=== PATIENT | male | born 1965 | race Two or more races ===

== ENCOUNTER 2016-03-02 08:50 | Observation (INO) | payer OTHER ==
[2016-03-02] MEDS ORDERED: LIDOCAINE 2% URO-JET 5 ML KIT MM ONE (09:12)
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
[2016-03-02 09:47] LABS: APPEARANCE,URINE CLOUDY; BILIRUBIN,URINE NEGATIVE (NEGATIVE); GLUCOSE, URINE >=500 mg/dL (NEGATIVE); KETONES,URINE NEGATIVE (NEGATIVE); LEUKOCYTE ESTERASE,URINE LARGE (NEGATIVE); NITRITE,URINE NEGATIVE (NEGATIVE); PROTEIN,URINE 100 mg/dL (NEGATIVE); URINE SPECIFIC GRAVITY 1.027; UROBILINOGEN,URINE NEGATIVE mg/dL (<2.0)
[2016-03-02] MEDS ORDERED: NORMAL SALINE 1000 ML 1,000 ML IV ONE ×3 (09:49→13:28)
[2016-03-02] MEDS ORDERED: KETOROLAC TROMETHAMINE INJ/PF 30 MG/1 ML SDV IV ONE (09:49)
[2016-03-02] MEDS ORDERED: LORAZEPAM INJ 2 MG/1 ML VIAL IV ONE (09:49)
[2016-03-02] MEDS ORDERED: CEFTRIAXONE 1 GM/D5W RTU 50 ML IV ONE (10:55)
[2016-03-02 11:14] LABS: ABSOLUTE MONOCYTES (AUTO) 0.9 10^3/uL (0.1-1.4); ABSOLUTE NEUT (AUTO) 12.3 10^3/uL (1.7-8.2); BASOPHILS % (AUTO) 0.2 % (0-2); EOSINOPHILS % (AUTO) 0.1 % (0-6); HEMOGLOBIN 14.3 g/dL (13.5-17.0); HGB HCT DIFFERENCE -0.1; LYMPHOCYTES % (AUTO) 13.2 % (13-45); MEAN CORPUSCULAR HGB CONC 33.2 g/dL (32.0-36.0); MEAN CORPUSCULAR VOLUME 93 fl (80-97); RED CELL DISTRIBUTION WIDTH 12.8 % (11.5-14.0); SEGMENTED NEUTROPHILS % (AUTO) 80.5 % (42-78); WHITE BLOOD COUNT 15.2 10^3/uL (4.0-10.5)
[2016-03-02 11:28] LABS: ALANINE AMINOTRANSFERASE 28 U/L (21-72); ALBUMIN 3.8 g/dL (3.5-5.0); ALKALINE PHOSPHATASE 69 U/L (38-126); ANION GAP 10 (5-19); ASPARTATE AMINO TRANSFERASE 15 U/L (17-59); BILIRUBIN,TOTAL 1.5 mg/dL (0.2-1.3); BLOOD UREA NITROGEN 13 mg/dL (7-20); CALCIUM 9.2 mg/dL (8.4-10.2); CARBON DIOXIDE 25 mmol/L (22-30); CHLORIDE 101 mmol/L (98-107); GLUCOSE 246 mg/dL (75-110); POTASSIUM 4.1 mmol/L (3.6-5.0); SODIUM 135.7 mmol/L (137-145); TOTAL PROTEIN 6.6 g/dL (6.3-8.2)
[2016-03-02] MEDS ORDERED: PHENAZOPYRIDINE HCL 200 MG TABLET PO ONE (13:27)
[2016-03-02] MEDS ORDERED: CIPROFLOXACIN HCL 500 MG TABLET PO ONE (13:27)
[2016-03-02] MEDS ORDERED: ACETAMINOPHEN 325 MG TABLET PO PRN (15:21)
[2016-03-02] MEDS ORDERED: GLUCAGON,HUMAN RECOMB 1 MG INJ IM PRN (15:21)
[2016-03-02] MEDS ORDERED: DEXTROSE 40% GEL 15 GM TUBE PO PRN ×2 (15:21)
[2016-03-02] MEDS ORDERED: DEXTROSE 50%-WATER 25 GM/50 ML DISP.SYRIN IV PRN ×2 (15:21)
[2016-03-02] MEDS ORDERED: ONDANSETRON HCL INJ/PF 4 MG/2 ML SDV IV PRN (15:21)
[2016-03-02] MEDS ORDERED: MAGNESIUM HYDROXIDE SUSP 30 ML UDCUP PO PRN (15:21)
[2016-03-02] MEDS ORDERED: NORMAL SALINE 1000 ML 1,000 ML IV PRN (15:21)
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
[2016-03-02] MEDS: INSULIN LISPRO 100 UNIT/ML 3 ML VIAL SUBCUT PRN ×2 (17:10→23:03)
[2016-03-02] MEDS: DOCUSATE SODIUM 100 MG CAPSULE PO SCH (22:53)
[2016-03-02] MEDS: INSULIN GLARGINE,HUM.REC.ANLOG 300 UNIT/3 ML INSULN.PEN SUBCUT SCH (23:02)
[2016-03-03] MEDS ORDERED: INFLUENZA ADLT QUAD (36MOS+) 2016-17 VAC 0.5 ML SYR IM PRN (03:39)
[2016-03-03 05:58] LABS: ABSOLUTE LYMPHOCYTES (AUTO) 2.9 10^3/uL (0.5-4.7); ABSOLUTE NEUT (AUTO) 9.8 10^3/uL (1.7-8.2); BASOPHILS % (AUTO) 0.3 % (0-2); EOSINOPHILS % (AUTO) 0.3 % (0-6); HEMATOCRIT 40.1 % (37.9-51.0); HEMOGLOBIN 13.3 g/dL (13.5-17.0); HGB HCT DIFFERENCE -0.2; LYMPHOCYTES % (AUTO) 20.8 % (13-45); MEAN CORPUSCULAR HEMOGLOBIN 31.1 pg (27.0-33.4); MEAN CORPUSCULAR HGB CONC 33.1 g/dL (32.0-36.0); MEAN CORPUSCULAR VOLUME 94 fl (80-97); MONOCYTES % (AUTO) 7.1 % (3-13); RED BLOOD COUNT 4.27 10^6/uL (4.35-5.55); SEGMENTED NEUTROPHILS % (AUTO) 71.5 % (42-78); WHITE BLOOD COUNT 13.8 10^3/uL (4.0-10.5)
[2016-03-03] MEDS: LANSOPRAZOLE 30 MG TAB.RAP.DR PO SCH (05:59)
[2016-03-03 06:13] LABS: ANION GAP 9 (5-19); BLOOD UREA NITROGEN 12 mg/dL (7-20); CALCIUM 8.4 mg/dL (8.4-10.2); CARBON DIOXIDE 25 mmol/L (22-30); CHLORIDE 103 mmol/L (98-107); CREATININE RESULT 0.68 mg/dL (0.52-1.25); Direct HDL 36 mg/dL (>40); GLUCOSE 193 mg/dL (75-110); POTASSIUM 3.9 mmol/L (3.6-5.0); SODIUM 136.8 mmol/L (137-145); TRIGLYCERIDES 145 mg/dL (<150)
[2016-03-03 06:24] LABS: DIRECT LDL 81 mg/dL (<100)
--- NOTE | 2016-03-03 07:23 | Physician Advisory Note ---
Physician Advisor ProgressNote .: Pursuant to the plan for [facility], I have reviewed the medical record for this patient. Physician Advisor Statement: Documentation opportunities, if attending agrees: 1. "mild hyponatremia, likely due to intravascular volume depletion" [ unless you think it's all due to hyperglycemia] 2. "possible early sepsis, present on admission, due to ___ [UTI, or ...], ruled out/in" - If you believe pt didn't really clinically have sepsis, though technically met Sepsis-2 criteria of tachycardia/leukocytosis, then please document this dx was ruled out. - If you believe pt did come in w/ sepsis, please document "sepsis, present on admission, due to ___". 3. (late entry): Principal Dx: please list as dx #1 the principal dx, i.e. the dx that was primarily responsible for the pt needing to be in the hospital. Status: Pt brought in as Outpt Obs, for IVF & IV abx. After 1MN of aggressive hospital care, pt still has tachycardia of 93. Leukocytosis, although improved, continues unresolved at 13.8. If attending, on review of pt, considers pt not sufficiently improved for safe d/c home today, he may document reasons & consider change to Inpatient status. Supporting info for sepsis dx = subjective fevers & rigors at home, HR 111 on arrival (w/BP 114/78), WBC 15.2 initially. CK
[2016-03-03] MEDS: ENOXAPARIN SODIUM INJ 40 MG/0.4 ML DISP.SYRIN SUBCUT SCH (09:14)
[2016-03-03] MEDS: CEFTRIAXONE 1 GM/D5W RTU 50 ML IV SCH (09:15)
[2016-03-03] MEDS: DOCUSATE SODIUM 100 MG CAPSULE PO SCH ×2 (09:15→17:38)
[2016-03-03] MEDS ORDERED: NORMAL SALINE 1000 ML 1,000 ML IV PRN (10:49)
[2016-03-03] MEDS: INSULIN LISPRO 100 UNIT/ML 3 ML VIAL SUBCUT PRN ×2 (12:15→21:37)
--- NOTE | 2016-03-03 12:41 | PDOC PROGRESS REPORT ---
Subjective Progress Note for:: 03/03/16 Subjective:: LIANA PANDEY is a 51 year old male presents to the emergency department from home with complaints of 2 day history of difficulty urinating. In spite of consuming large volumes of water during the day he has noticed a decrease in the amount of urine made over the last couple of days with increased burning and dysuric symptoms. He describes his urine stream is merely dribbles of dark concentrated urine that cloudy and a bit foul-smelling as well. He reports subjective fevers and rigors at home. He is a known diabetic but does not have insurance and therefore has not received his Lantus and sliding scale insulin for over 6 months now. He still has a glucometer at home and checks his blood sugars at least twice week and states they run around 250 however his hemoglobin A1c in the emergency department is greater than 13. Diabetes runs strongly in his family, his father suffered multiple claudications from diabetes including bilateral amputations and end-stage renal disease requiring hemodialysis and ultimately transfusion before losing his life, patient was diabetes. Evaluation in the emergency department shows a urinary tract infection, poorly controlled blood sugars, clinical evidence of volume depletion without end organ damage and we were asked to admit him under observation to "tune him up and getting some help". Allergies making urine again he has noted some tinge of blood, notes the lower abdominal pain and bladder spasm pain seems to have improved. Physical Exam Vital Signs: Temp Pulse Resp BP Pulse Ox 97.9 F 85 18 111/67 95 03/03/16 08:02 03/03/16 08:02 03/03/16 08:02 03/03/16 08:02 03/03/16 08:02 Intake & Output 03/02/16 03/03/16 03/04/16 06:59 06:59 06:59 Intake Total 460 Output Total 2400 Balance -1940 Weight 109.2 kg General appearance: PRESENT: no acute distress, well-developed, well-nourished Head exam: PRESENT: atraumatic, normocephalic Eye exam: PRESENT: conjunctiva pink, EOMI, PERRLA. ABSENT: scleral icterus Mouth exam: PRESENT: moist, tongue midline Neck exam: ABSENT: carotid bruit, JVD, lymphadenopathy, thyromegaly Respiratory exam: PRESENT: clear to auscultation abi. ABSENT: rales, rhonchi, wheezes Cardiovascular exam: PRESENT: RRR. ABSENT: diastolic murmur, rubs, systolic murmur Pulses: PRESENT: normal dorsalis pedis pul Vascular exam: PRESENT: normal capillary refill GI/Abdominal exam: PRESENT: normal bowel sounds, soft. ABSENT: distended, guarding, rebound, tenderness Rectal exam: PRESENT: deferred Gentrourinary exam: PRESENT: indwelling catheter - Dark samm colored urine in the bag Extremities exam: PRESENT: full ROM. ABSENT: calf tenderness, clubbing, pedal edema Neurological exam: PRESENT: alert, awake, oriented to person, oriented to place , oriented to time, oriented to situation Psychiatric exam: PRESENT: appropriate affect, normal mood Skin exam: PRESENT: dry, intact, warm. ABSENT: cyanosis, rash Results Laboratory Results: 03/03/16 05:38 03/03/16 05:38 03/03/16 03/03/16 05:38 05:38 WBC 13.8 H RBC 4.27 L Hgb 13.3 L Hct 40.1 MCV 94 MCH 31.1 MCHC 33.1 RDW 13.0 Plt Count 187 Seg Neutrophils % 71.5 Lymphocytes % 20.8 Monocytes % 7.1 Eosinophils % 0.3 Basophils % 0.3 Absolute Neutrophils 9.8 H Absolute Lymphocytes 2.9 Absolute Monocytes 1.0 Absolute Eosinophils 0.0 Absolute Basophils 0.0 Sodium 136.8 L Potassium 3.9 Chloride 103 Carbon Dioxide 25 Anion Gap 9 BUN 12 Creatinine 0.68 Est GFR ( Amer) > 60 Est GFR (Non-Af Amer) > 60 Glucose 193 H Calcium 8.4 Triglycerides 145 Cholesterol 140.60 LDL Cholesterol Direct 81 VLDL Cholesterol 29.0 HDL Cholesterol 36 L Assessment & Plan - Diagnosis (1) Diabetes Qualifiers: Diabetes mellitus type: type 2 Diabetes mellitus complication status: with hyperglycemia Diabetes mellitus director long term care insulin use: unspecified director long term care insulin use status Qualified Code(s): E11.65 - Type 2 diabetes mellitus with hyperglycemia; Z79.4 - half-way (current) use of insulin Is this a current diagnosis for this admission?: YesPlan: Placed on low-dose Lantus 10 units at night supplemented with sliding scale. Diabetic education. 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 (2) UTI (urinary tract infection) with pyuria Is this a current diagnosis for this admission?: YesPlan: Empiric Rocephin while we await culture results from the emergency department. (3) Sepsis Qualifiers: Sepsis type: sepsis due to unspecified organism Qualified Code(s): A41.9 - Sepsis, unspecified organism Is this a current diagnosis for this admission?: YesPlan: As evidenced by leukocytosis and tachycardia and unknown source. Treatment with IV fluids through the night and antibiotics careful monitoring of his hemodynamic status. (4) Tobacco dependence Is this a current diagnosis for this admission?: YesPlan: Tobacco cessation counseling offered and refused. (5) Volume depletion, unspecified Is this a current diagnosis for this admission?: YesPlan: As above (6) Hematuria Is this a current diagnosis for this admission?: YesPlan: Possibly a hemorrhagic cystitis. Will check noncontrast CT of the abdomen and pelvis, stone survey to rule out nephrolithiasis. - Time Time Spent with patient: 25-34 minutes Anticipated discharge: Home Within: within 24 hours - Inpatient Certification Based on my medical assessment, after consideration of the patient's comorbidities, presenting symptoms, or acuity I expect that the services needed warrant INPATIENT care.: Yes I certify that my determination is in accordance with my understanding of Medicare's requirements for reasonable and necessary INPATIENT services [42 CFR 412.3e].: Yes Medical Necessity: Need For IV Fluids, Need for IV Antibiotics
[2016-03-03] MEDS: LACTOBACILLUS ACIDOPHILUS 250 MG TAB PO SCH (17:38)
[2016-03-03] MEDS: INSULIN GLARGINE,HUM.REC.ANLOG 300 UNIT/3 ML INSULN.PEN SUBCUT SCH (21:37)
[2016-03-04] MEDS: LANSOPRAZOLE 30 MG TAB.RAP.DR PO SCH (05:05)
[2016-03-04] MEDS: INSULIN LISPRO 100 UNIT/ML 3 ML VIAL SUBCUT PRN ×3 (09:12→17:14)
[2016-03-04] MEDS: ENOXAPARIN SODIUM INJ 40 MG/0.4 ML DISP.SYRIN SUBCUT SCH (09:12)
[2016-03-04] MEDS: CEFTRIAXONE 1 GM/D5W RTU 50 ML IV SCH (09:13)
[2016-03-04] MEDS: LACTOBACILLUS ACIDOPHILUS 250 MG TAB PO SCH ×2 (09:13→17:15)
[2016-03-04] MEDS: DOCUSATE SODIUM 100 MG CAPSULE PO SCH ×2 (09:14→17:15)
[2016-03-04] MEDS ORDERED: TAMSULOSIN HCL 0.4 MG CAP.SR.24H PO ONE (12:15)
[2016-03-04 16:04] VITALS: BP 112/70
--- NOTE | 2016-03-04 16:35 | PDOC DISCHARGE SUMMARY ---
General - Admit/Disc Date/PCP Admission Date/Primary Care Provider: 03/02/16 16:14 GONZALO ATKINS Discharge Date: 03/04/16 - Discharge Diagnosis (1) Hyperglycemia due to type 2 diabetes mellitus Is this a current diagnosis for this admission?: YesSummary: patient has had not had treatment for diabetes for the past 2 years his blood sugars were above 200 hemoglobin A1c 13 Had been on insulin for a couple years We did restart metformin and glipizide Patient to follow-up with the [facility] and insulin regimen resume if patient is hemoglobin A1c remains elevated (2) UTI (urinary tract infection) with pyuria Is this a current diagnosis for this admission?: YesSummary: Urine culture grew Escherichia coli pansensitive Patient was treated with ceftriaxone in the hospital and will be discharged on Cipro (3) Sepsis Is this a current diagnosis for this admission?: YesSummary: Patient had tachycardia and leukocytosis on admission Early sepsis secondary to UTI resolved (4) Hyponatremia Is this a current diagnosis for this admission?: YesSummary: Mild hyponatremia secondary to hypovolemia (5) Urinary retention Is this a current diagnosis for this admission?: YesSummary: Spencer catheter has been placed on admission it was removed prior to discharge: patient was also given Flomax 0.4 mg by mouth Patient had no problem voiding prior to his discharge Prescription for Flomax 0.4 mg daily was given - Additional Information Resuscitation Status: Full Code Discharge Diet: Diabetic Discharge Activity: Activity As Tolerated Home Medications: Ciprofloxacin HCl [Cipro 500 mg Tablet] 500 mg PO BID #14 tablet 03/04/16 Glipizide 5 mg PO BID #60 tablet 03/04/16 Metformin HCl 500 mg PO BID #60 tablet 03/04/16 Tamsulosin HCl [Flomax 0.4 mg Cap.sr] 0.4 mg PO QHS #30 cap.sr.24h 03/04/16 History of Present Illness Patient complains of: difficulty urinating History of Present Illness: LIANA PANDEY is a 51 year old male presents to the emergency department from home with complaints of 2 day history of difficulty urinating. In spite of consuming large volumes of water during the day he has noticed a decrease in the amount of urine made over the last couple of days with increased burning and dysuric symptoms. He describes his urine stream is merely dribbles of dark concentrated urine that cloudy and a bit foul-smelling as well. He reports subjective fevers and rigors at home. He is a known diabetic but does not have insurance and therefore has not received his Lantus and sliding scale insulin for over 6 months now. He still has a glucometer at home and checks his blood sugars at least twice week and states they run around 250 however his hemoglobin A1c in the emergency department is greater than 13. Diabetes runs strongly in his family, his father suffered multiple claudications from diabetes including bilateral amputations and end-stage renal disease requiring hemodialysis and ultimately transfusion before losing his life, patient was diabetes. Evaluation in the emergency department shows a urinary tract infection, poorly controlled blood sugars, clinical evidence of volume depletion without end organ damage and we were asked to admit him under observation to "tune him up and getting some help". Hospital Course Hospital Course: Patient was admitted with urinary tract infection acute urinary retention and early sepsis Patient's condition improved rapidly within 48 hours Discharge without the Spencer catheter to follow up with the [facility] Physical Exam Vital Signs: Temp Pulse Resp BP Pulse Ox 98.7 F 73 20 112/70 96 03/04/16 15:44 03/04/16 15:44 03/04/16 15:44 03/04/16 15:44 03/04/16 15:44 Intake & Output 03/03/16 03/04/16 03/05/16 00:59 00:59 00:59 Intake Total 2252 1530 Output Total 600 3400 2300 Balance -600 -2618 -770 Weight 109.2 kg 108.9 kg General appearance: PRESENT: no acute distress, well-developed, well-nourished Head exam: PRESENT: atraumatic, normocephalic Eye exam: PRESENT: conjunctiva pink, EOMI, PERRLA. ABSENT: scleral icterus Ear exam: PRESENT: normal external ear exam Mouth exam: PRESENT: moist, tongue midline Neck exam: ABSENT: carotid bruit, JVD, lymphadenopathy, thyromegaly Respiratory exam: PRESENT: clear to auscultation abi. ABSENT: rales, rhonchi, wheezes Cardiovascular exam: PRESENT: RRR. ABSENT: diastolic murmur, rubs, systolic murmur Pulses: PRESENT: normal dorsalis pedis pul Vascular exam: PRESENT: normal capillary refill GI/Abdominal exam: PRESENT: normal bowel sounds, soft. ABSENT: distended, guarding, mass, organolmegaly, rebound, tenderness Rectal exam: PRESENT: deferred Extremities exam: PRESENT: full ROM. ABSENT: calf tenderness, clubbing, pedal edema Neurological exam: PRESENT: alert, awake, oriented to person, oriented to place , oriented to time, oriented to situation, CN II-XII grossly intact. ABSENT: motor sensory deficit Psychiatric exam: PRESENT: appropriate affect, normal mood. ABSENT: homicidal ideation, suicidal ideation Skin exam: PRESENT: dry, intact, warm. ABSENT: cyanosis, rash Results Laboratory Results: 03/03/16 05:38 03/03/16 05:38 03/02/16 16:15 Blood Culture - Preliminary Blood NO GROWTH IN 24 HOURS 03/02/16 16:00 Blood Culture - Preliminary Blood NO GROWTH IN 24 HOURS 03/02/16 09:23 Urine Culture - Final Catheterized Urine Escherichia Coli Impressions: Abdomen/Pelvis CT 03/03/16 00:00 IMPRESSION: NO SIGNIFICANT OR ACUTE PROCESS IN THE ABDOMEN OR PELVIS. Plan Discharge Plan: Patient was discharged home to follow-up with [facility] Time Spent: Less than 30 Minutes
== END 2016-03-04 17:42 | disposition home or self-care (01) ==
LOC: ER 08:50 → EH 16:14 → 5 18:49
PROVIDERS: ADMIT Internal Medicine; ATTEND Internal Medicine
DX: E11.65 Type 2 diabetes mellitus with hyperglycemia (principal); N39.0 Urinary tract infection, site not specified; A41.9 Sepsis, unspecified organism; E87.1 Hypo-osmolality and hyponatremia; R33.9 Retention of urine, unspecified; Z79.84 Long term (current) use of oral hypoglycemic drugs; Z23 Encounter for immunization; F32.9 Major depressive disorder, single episode, unspecified; F43.10 Post-traumatic stress disorder, unspecified; F17.210 Nicotine dependence, cigarettes, uncomplicated; E86.9 Volume depletion, unspecified
CPT/HCPCS: 99285; 96361; 96375; 96365; 36415 ×2; 87040; 87086; 82962 ×3; 85025 ×2; 87088; 80048; 80053; 81001; 87186; 83036; 80061; 74176; 90686; 90471; G0378 ×4; J1815 ×4; J1885; J1650 ×2; J3490 ×2; J2060; J7030 ×2; J0696 ×3

== ENCOUNTER 2016-03-29 06:26 | Emergency (ER) | payer OTHER ==
[2016-03-29 07:00] LABS: AMORPHOUS SEDIMENT,URINE TRACE /HPF; APPEARANCE,URINE SLIGHTLY-CLOUDY; BILIRUBIN,URINE NEGATIVE (NEGATIVE); GLUCOSE, URINE 50 mg/dL (NEGATIVE); KETONES,URINE NEGATIVE (NEGATIVE); LEUKOCYTE ESTERASE,URINE LARGE (NEGATIVE); NITRITE,URINE POSITIVE (NEGATIVE); PROTEIN,URINE NEGATIVE (NEGATIVE); URINE SPECIFIC GRAVITY 1.002; UROBILINOGEN,URINE NEGATIVE mg/dL (<2.0)
[2016-03-29] MEDS ORDERED: CEFTRIAXONE INJ 1000 MG VIAL IM ONE (07:42)
[2016-03-29] MEDS ORDERED: LIDOCAINE 1% INJ-PF (10 MG/ML) 30 ML SDV INFIL ONE (07:42)
[2016-03-29] MEDS ORDERED: SULFAMETHOXAZOLE/TRIMETHOPRIM 800-160 MG TABLET PO ONE (07:42)
[2016-03-29 08:26] VITALS: BP 110/73
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
== END 2016-03-29 08:24 | disposition home or self-care (01) ==
LOC: ER 06:26
DX: N39.0 Urinary tract infection, site not specified (principal); R30.9 Painful micturition, unspecified; R31.9 Hematuria, unspecified; F17.210 Nicotine dependence, cigarettes, uncomplicated
CPT/HCPCS: 99283; 96372; 87086; 87088; 81001; 87186; J3490; J0696

== ENCOUNTER → 2016-04-14 | Outpatient (CLI) | payer OTHER ==
[2016-04-14 13:58] LABS: ALANINE AMINOTRANSFERASE 34 U/L (21-72); ALBUMIN 4.5 g/dL (3.5-5.0); ALKALINE PHOSPHATASE 60 U/L (38-126); ANION GAP 10 (5-19); ASPARTATE AMINO TRANSFERASE 23 U/L (17-59); BILIRUBIN,TOTAL 1.3 mg/dL (0.2-1.3); BLOOD UREA NITROGEN 17 mg/dL (7-20); CARBON DIOXIDE 27 mmol/L (22-30); CHLORIDE 102 mmol/L (98-107); CHOLESTEROL 184.91 mg/dL (0-200); CREATININE RESULT 0.98 mg/dL (0.52-1.25); Direct HDL 41 mg/dL (>40); GLUCOSE 102 mg/dL (75-110); SODIUM 139.4 mmol/L (137-145); TOTAL PROTEIN 7.6 g/dL (6.3-8.2); TRIGLYCERIDES 195 mg/dL (<150)
[2016-04-14 14:09] LABS: DIRECT LDL 105 mg/dL (<100)
== END ==
LOC: CCC 11:40
DX: E11.9 Type 2 diabetes mellitus without complications (principal); M25.512 Pain in left shoulder; M25.531 Pain in right wrist
CPT/HCPCS: 36415; 80053; 80061; 83036; 84443

== ENCOUNTER → 2016-07-24 | Outpatient (CLI) | payer OTHER ==
[2016-07-24 13:20] LABS: ALANINE AMINOTRANSFERASE 35 U/L (21-72); ALBUMIN 4.3 g/dL (3.5-5.0); ALKALINE PHOSPHATASE 59 U/L (38-126); ANION GAP 10 (5-19); ASPARTATE AMINO TRANSFERASE 21 U/L (17-59); BILIRUBIN,DIRECT 0.3 mg/dL (0.0-0.4); BILIRUBIN,TOTAL 0.9 mg/dL (0.2-1.3); BLOOD UREA NITROGEN 14 mg/dL (7-20); CALCIUM 9.7 mg/dL (8.4-10.2); CARBON DIOXIDE 26 mmol/L (22-30); CHLORIDE 101 mmol/L (98-107); CHOLESTEROL 212.23 mg/dL (0-200); Direct HDL 42 mg/dL (>40); GLUCOSE 122 mg/dL (75-110); POTASSIUM 4.8 mmol/L (3.6-5.0); SODIUM 137.1 mmol/L (137-145); TOTAL PROTEIN 7.7 g/dL (6.3-8.2); TRIGLYCERIDES 201 mg/dL (<150)
[2016-07-24 13:37] LABS: DIRECT LDL 136 mg/dL (<100)
[2016-07-24 13:42] LABS: VLDL CHOLESTEROL 40.2 mg/dL (10-31)
== END ==
LOC: CCC 11:24
DX: E11.9 Type 2 diabetes mellitus without complications (principal)
CPT/HCPCS: 36415; 80053; 80061; 82043; 83036; 84436; 84443

== ENCOUNTER → 2017-01-26 | Outpatient (CLI) | payer OTHER ==
[2017-01-26 16:05] LABS: ALANINE AMINOTRANSFERASE 36 U/L (21-72); ALBUMIN 4.5 g/dL (3.5-5.0); ALKALINE PHOSPHATASE 83 U/L (38-126); ANION GAP 15 (5-19); ASPARTATE AMINO TRANSFERASE 15 U/L (17-59); BILIRUBIN,DIRECT 0.4 mg/dL (0.0-0.4); BILIRUBIN,TOTAL 1.2 mg/dL (0.2-1.3); BLOOD UREA NITROGEN 13 mg/dL (7-20); CALCIUM 9.5 mg/dL (8.4-10.2); CARBON DIOXIDE 22 mmol/L (22-30); CHLORIDE 100 mmol/L (98-107); CHOLESTEROL 238.12 mg/dL (0-200); CREATININE RESULT 0.77 mg/dL (0.52-1.25); Direct HDL 40 mg/dL (>40); GLUCOSE 263 mg/dL (75-110); POTASSIUM 4.4 mmol/L (3.6-5.0); SODIUM 137.3 mmol/L (137-145); TOTAL PROTEIN 7.5 g/dL (6.3-8.2); TRIGLYCERIDES 311 mg/dL (<150)
[2017-01-26 16:16] LABS: DIRECT LDL 151 mg/dL (<100)
[2017-01-26 16:18] LABS: VLDL CHOLESTEROL 62.2 mg/dL (10-31)
== END ==
LOC: OD 15:08
DX: E11.9 Type 2 diabetes mellitus without complications (principal); E78.5 Hyperlipidemia, unspecified
CPT/HCPCS: 36415; 80053; 80061; 83036

== ENCOUNTER 2017-04-01 17:19 | Emergency (ER) | payer OTHER ==
[2017-04-01] MEDS ORDERED: NORMAL SALINE 1000 ML 1,000 ML IV ONE (17:48)
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
[2017-04-01 18:44] LABS: ALANINE AMINOTRANSFERASE 32 U/L (21-72); ALBUMIN 4.7 g/dL (3.5-5.0); ALKALINE PHOSPHATASE 75 U/L (38-126); ANION GAP 12 (5-19); ASPARTATE AMINO TRANSFERASE 18 U/L (17-59); BILIRUBIN,DIRECT 0.4 mg/dL (0.0-0.4); BLOOD UREA NITROGEN 17 mg/dL (7-20); CALCIUM 10.3 mg/dL (8.4-10.2); CARBON DIOXIDE 28 mmol/L (22-30); CHLORIDE 100 mmol/L (98-107); GLUCOSE 239 mg/dL (75-110); LIPASE 55.9 U/L (23-300); POTASSIUM 4.7 mmol/L (3.6-5.0); SODIUM 139.6 mmol/L (137-145); TOTAL PROTEIN 7.9 g/dL (6.3-8.2)
[2017-04-01] MEDS ORDERED: FENTANYL CITRATE INJ/PF 100 MCG/2 ML AMPUL IV PRN (19:08)
[2017-04-01] MEDS ORDERED: ONDANSETRON HCL INJ/PF 4 MG/2 ML SDV IV ONE (19:08)
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
[2017-04-01 19:14] LABS: ABSOLUTE BASOPHILS # (AUTO) 0.1 10^3/uL (0.0-0.2); ABSOLUTE EOSINOPHILS # (AUTO) 0.1 10^3/uL (0.0-0.6); ABSOLUTE LYMPHOCYTES (AUTO) 2.1 10^3/uL (0.5-4.7); ABSOLUTE MONOCYTES (AUTO) 0.8 10^3/uL (0.1-1.4); ABSOLUTE NEUT (AUTO) 11.7 10^3/uL (1.7-8.2); BASOPHILS % (AUTO) 0.6 % (0-2); EOSINOPHILS % (AUTO) 0.9 % (0-6); HEMATOCRIT 43.7 % (37.9-51.0); HEMOGLOBIN 15.1 g/dL (13.5-17.0); LYMPHOCYTES % (AUTO) 14.3 % (13-45); MEAN CORPUSCULAR HEMOGLOBIN 32.3 pg (27.0-33.4); MEAN CORPUSCULAR HGB CONC 34.6 g/dL (32.0-36.0); MEAN CORPUSCULAR VOLUME 94 fl (80-97); MONOCYTES % (AUTO) 5.5 % (3-13); PLATELET COUNT 198 10^3/uL (150-450); RED BLOOD COUNT 4.68 10^6/uL (4.35-5.55); SEGMENTED NEUTROPHILS % (AUTO) 78.7 % (42-78); TOTAL CELLS COUNTED % (AUTO) 100 %; WHITE BLOOD COUNT 14.9 10^3/uL (4.0-10.5)
[2017-04-01 19:25] LABS: APPEARANCE,URINE SLIGHTLY-CLOUDY; BILIRUBIN,URINE NEGATIVE (NEGATIVE); COLOR,URINE YELLOW; GLUCOSE, URINE >=500 mg/dL (NEGATIVE); KETONES,URINE TRACE mg/dL (NEGATIVE); LEUKOCYTE ESTERASE,URINE NEGATIVE (NEGATIVE); NITRITE,URINE NEGATIVE (NEGATIVE); PROTEIN,URINE 30 mg/dL (NEGATIVE); URINE SPECIFIC GRAVITY 1.035
--- NOTE | 2017-04-01 19:54 | RADIOLOGY REPORT (SQ) ---
EXAM DESCRIPTION: CT ABD/PELVIS WITH IV ONLY COMPLETED DATE/TIME: 04/01/2017 7:39 pm REASON FOR STUDY: rlq pain, eval appendicitis COMPARISON: 03/03/2016 TECHNIQUE: CT scan of the abdomen and pelvis performed using helical scanning technique with dynamic intravenous contrast injection. No oral contrast. Images reviewed with lung, soft tissue, and bone windows. Reconstructed coronal and sagittal MPR images reviewed. Delayed images for evaluation of the urinary system also acquired. All images stored on PACS. All CT scanners at this facility use dose modulation, iterative reconstruction, and/or weight based d osing when appropriate to reduce radiation dose to as low as reasonably achievable (ALARA). [facility]: Dose Right [facility]: CareDose [facility]: Dose Right [facility]: Teradose 4D [facility]: [employer] CONTRAST TYPE AND DOSE: contrast/concentration: Isovue 370.00 mg/ml; Total Contrast Delivered: 100.0 ml; Total Saline Delivered: 45.0 ml RENAL FUNCTION: GFR > 60. RADIATION DOSE: CT Rad equipment meets quality standard of care and radiation dose reduction techniq ues were employed. CTDIvol: 18.1 - 20.0 mGy. DLP: 2124 mGy-cm.. LIMITATIONS: None. FINDINGS: LOWER CHEST: No significant findings. No nodules or infiltrates. LIVER: Normal size. No masses. No dilated ducts. SPLEEN: Normal size. No focal lesions. PANCREAS: No masses. No significant calcifications. No adjacent inflammation or peripancreatic fluid collections. Pancreatic duct not dilated. GALLBLADDER: No identified stones by CT criteria. No inflammatory changes to suggest cholecystitis. ADRENAL GLANDS: No significant masses or asymmetry. RIGHT KIDNEY AND URETER: No solid masses. No significant calcifications. No hydronephrosis or hyd roureter. LEFT KIDNEY AND URETER: No solid masses. No significant calcifications. No hydronephrosis or hydr oureter. AORTA AND VESSELS: No aneurysm. No dissection. Renal arteries, SMA, celiac without stenosis. RETROPERITONEUM: No retroperitoneal adenopathy, hemorrhage or masses. BOWEL AND PERITONEAL CAVITY: No masses or inflammatory changes. No free fluid or peritoneal masses. APPENDIX: Normal. PELVIS: No mass. No free fluid. Normal bladder. ABDOMINAL WALL: No masses. No hernias. BONES: No significant or acute findings. OTHER: No other significant finding. IMPRESSION: NO ACUTE FINDING IN THE ABDOMEN OR PELVIS ON CT SCAN WITH IV CONTRAST. TECHNICAL DOCUMENTATION: JOB ID: [id number]-72 Quality ID # [id number]: Final reports with documentation of one or more dose reduction techniques (e.g., Au tomated exposure control, adjustment of the mA and/or kV according to patient size, use of iterative reconstruction technique) 2010 [employer]- All Rights Reserved
[2017-04-01] MEDS ORDERED: ONDANSETRON ODT 4 MG TAB (6 TAB/ER DISP) PO PRN (21:33)
[2017-04-01] MEDS ORDERED: LIDOCAINE 2% VISCOUS SOLN 20 ML UDCUP PO ONE (21:49)
[2017-04-01] MEDS ORDERED: METOCLOPRAMIDE HCL ORAL SOLN 10 MG/10 ML UDCUP PO ONE (21:49)
[2017-04-01] MEDS ORDERED: MAG HYDROX/AL HYDROX/SIMETH SUSP 30 ML UDCUP PO ONE (21:49)
[2017-04-01] MEDS ORDERED: FAMOTIDINE 20 MG TABLET PO ONE (21:49)
[2017-04-01 22:02] VITALS: BP 133/90
== END 2017-04-01 22:10 | disposition home or self-care (01) ==
LOC: ER 17:19
DX: R10.31 Right lower quadrant pain (principal); R11.2 Nausea with vomiting, unspecified; F17.200 Nicotine dependence, unspecified, uncomplicated; E78.00 Pure hypercholesterolemia, unspecified; E66.01 Morbid (severe) obesity due to excess calories; E11.9 Type 2 diabetes mellitus without complications; Z79.4 Long term (current) use of insulin
CPT/HCPCS: 99284; 96361; 96374; 96375; 36415; 83690; 85025; 80053; 81001; 74177; J3010; J3490; J2405; J7030

== ENCOUNTER 2017-05-30 18:22 | Emergency (ER) | payer OTHER ==
[2017-05-30 18:41] VITALS: BP 123/85
[2017-05-30] MEDS ORDERED: TETRACAINE HCL 0.5% OPH SOLN 2 ML OU ONE (19:45)
[2017-05-30] MEDS ORDERED: KETOROLAC TROMETHAMINE 0.45% 4 DROP/0.4 ML DROPERETTE OU ONE (19:45)
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
[2017-05-30] MEDS ORDERED: POLYMYXIN B SULFATE/TMP OPH SOLN (10 ML/ER DISP) OU PRN (20:47)
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
== END 2017-05-30 21:03 | disposition home or self-care (01) ==
LOC: ER 18:22
DX: S05.01XA Injury of conjunctiva and corneal abrasion without foreign body, right eye, initial encounter (principal); T15.91XA Foreign body on external eye, part unspecified, right eye, initial encounter; F17.200 Nicotine dependence, unspecified, uncomplicated; X58.XXXA Exposure to other specified factors, initial encounter; E78.00 Pure hypercholesterolemia, unspecified
CPT/HCPCS: 99283; J3490

== ENCOUNTER → 2017-08-26 | Outpatient (CLI) | payer OTHER ==
[2017-08-26 13:40] LABS: ANION GAP 10 (5-19); BLOOD UREA NITROGEN 19 mg/dL (7-20); CALCIUM 9.7 mg/dL (8.4-10.2); CARBON DIOXIDE 24 mmol/L (22-30); CHLORIDE 105 mmol/L (98-107); CHOLESTEROL 201.43 mg/dL (0-200); GLUCOSE 221 mg/dL (75-110); POTASSIUM 4.7 mmol/L (3.6-5.0); SODIUM 139.4 mmol/L (137-145); TRIGLYCERIDES 370 mg/dL (<150)
[2017-08-26 13:51] LABS: DIRECT LDL 94 mg/dL (<100)
[2017-08-26 14:34] LABS: ABSOLUTE BASOPHILS # (AUTO) 0.1 10^3/uL (0.0-0.2); ABSOLUTE EOSINOPHILS # (AUTO) 0.1 10^3/uL (0.0-0.6); ABSOLUTE LYMPHOCYTES (AUTO) 3.7 10^3/uL (0.5-4.7); ABSOLUTE MONOCYTES (AUTO) 0.5 10^3/uL (0.1-1.4); ABSOLUTE NEUT (AUTO) 4.2 10^3/uL (1.7-8.2); BASOPHILS % (AUTO) 0.6 % (0-2); EOSINOPHILS % (AUTO) 1.4 % (0-6); HEMATOCRIT 43.2 % (37.9-51.0); HEMOGLOBIN 15.4 g/dL (13.5-17.0); LYMPHOCYTES % (AUTO) 43.4 % (13-45); MEAN CORPUSCULAR HEMOGLOBIN 32.6 pg (27.0-33.4); MEAN CORPUSCULAR HGB CONC 35.6 g/dL (32.0-36.0); MEAN CORPUSCULAR VOLUME 91 fl (80-97); MONOCYTES % (AUTO) 5.4 % (3-13); PLATELET COUNT 211 10^3/uL (150-450); RED BLOOD COUNT 4.72 10^6/uL (4.35-5.55); RED CELL DISTRIBUTION WIDTH 12.9 % (11.5-14.0); SEGMENTED NEUTROPHILS % (AUTO) 49.2 % (42-78); TOTAL CELLS COUNTED % (AUTO) 100 %; WHITE BLOOD COUNT 8.6 10^3/uL (4.0-10.5)
== END ==
LOC: CCC 12:37
DX: E11.8 Type 2 diabetes mellitus with unspecified complications (principal)
CPT/HCPCS: 36415; 80048; 80061; 83036; 84443; 85025

== ENCOUNTER → 2018-01-15 | Outpatient (CLI) | payer OTHER | LOC: CCC 16:25 | DX: E11.8 Type 2 diabetes mellitus with unspecified complications (principal) | CPT/HCPCS: 36415; 83036 ==

== ENCOUNTER 2019-12-19 09:35 | Emergency (ER) | payer SELFPAY ==
[2019-12-19] MEDS ORDERED: TETRACAINE HCL 0.5% OPH SOLN 4 ML OU ONE (09:46)
[2019-12-19 10:03] VITALS: BP 131/83
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
== END 2019-12-19 10:31 | disposition home or self-care (01) ==
LOC: ER 09:35
DX: T53.5X1A Toxic effect of chlorofluorocarbons, accidental (unintentional), initial encounter (principal); H10.213 Acute toxic conjunctivitis, bilateral; E11.9 Type 2 diabetes mellitus without complications; Z87.891 Personal history of nicotine dependence
CPT/HCPCS: 99283; J3490

== ENCOUNTER → 2020-01-13 | Outpatient (CLI) | payer MEDICAID ==
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
[2020-01-13 11:51] VITALS: BP 108/62
== END ==
LOC: RDC 10:33
PROVIDERS: ATTEND Nurse Practitioner Family
DX: J06.9 Acute upper respiratory infection, unspecified (principal); Z20.828 Contact with and (suspected) exposure to other viral communicable diseases; R05 Cough; R11.2 Nausea with vomiting, unspecified; R10.9 Unspecified abdominal pain; R19.7 Diarrhea, unspecified; E11.9 Type 2 diabetes mellitus without complications; F17.210 Nicotine dependence, cigarettes, uncomplicated; Z71.6 Tobacco abuse counseling
CPT/HCPCS: 87635; C9803; 99201; 99211